=== PATIENT | female | born 1990 | race Caucasian/White ===

== ENCOUNTER 2016-04-27 13:00 | Inpatient (IN) | payer MEDICAID ==
[~2016-04-27] VITALS: Ht 157.5 cm; Wt 87.3 kg
--- NOTE | ~2016-04-27 | DS ---
PATIENT'S NAME: JUNIOR HOLLIS [facility] AGE: 26 Y [address] ROOM: [address] [address] LOCATION: GPCU ADMIT DATE: 04/27/2016 Discharge Summary DISCHARGE DATE: 04/30/2016 FAMILY PHYSICIAN: Beth Leavitt APRN ATTENDING PHYSICIAN: Drake Bailey PRIMARY DIAGNOSES: 1. Diabetic ketoacidosis. 2. Insulin-dependent diabetes mellitus type 1. 3. Enteritis. 4. Hypothyroidism. 5. Anxiety, generalized. 6. Bipolar disorder. 7. Posttraumatic stress disorder. OPERATIONS OR PROCEDURES: None. HISTORY OF PRESENTING ILLNESS AND REASON FOR ADMISSION: Please refer to the H and P dictated on 04/27/2016. HOSPITAL COURSE: The patient was admitted to the hospital as noted above with a presumptive diagnosis of diabetic ketoacidosis. She was taken [facility]. She was managed aggressively with IV insulin and IV fluid hydration therapy. Clinical condition improved relatively quickly. Blood sugars did resolve. She was eventually transitioned to D5 half-normal saline with 20 of potassium and this was tapered off. By day #2, she was tolerating a regular diet and assisting in the management of her blood sugars. She was transitioned to a subcu insulin regimen. Considering difficulties with her insulin pump and management, we looked at utilizing a simplified insulin regimen at home. For some reason, she had been treated with Invokana and metformin; however, it seems to be understood that she is a type 1 diabetic. I did not find any clearly documented evidence of this, however. Regardless, the metformin and Invokana were stopped, and she was managed exclusively with insulin. She seemed to respond well to the subcu regimen. The certified pedorthotist was consulted and after reviewing her outpatient problems, it was decided that she would fair the best back on her insulin pump. She did indeed have insurance coverage, but she also received some additional insulin pump supplies from the clinical document improvement educator. By the 4th day of her hospital stay, she was essentially back at baseline and managing her own blood sugars independently. Diabetes Education did review her pump settings and made some minor adjustments. At that point, it was felt she would be stable enough for discharge to home with plans for close clinical PATIENT'S NAME: JUNIOR HOLLIS [facility] AGE: 26 Y [address] ROOM: [id number] [place], [place] [address] LOCATION: GPCU ADMIT DATE: 04/27/2016 Discharge Summary DISCHARGE DATE: 04/30/2016 FAMILY PHYSICIAN: Beth Leavitt APRN ATTENDING PHYSICIAN: Drake Bailey followup with primary care provider as well as outpatient followup with the clinical document improvement educator and eventual followup with Endocrinology. This has already been scheduled. DISCHARGE INSTRUCTIONS: DIET: ADA, 1800-calorie per day as tolerated. ACTIVITY: As tolerated. MEDICATIONS: 1. Insulin pump; Humalog 1.55 units/hour with 1 unit per 3 carbs, mealtime correction per her insulin pump. 2. Alprazolam 2 mg p.o. at bedtime, 1 mg p.o. t.i.d. p.r.n. 3. Abilify 30 mg p.o. at bedtime. 4. Benadryl 50 mg p.o. at bedtime. 5. Lexapro 20 mg p.o. at bedtime. 6. Trintellix 20 mg p.o. at bedtime. 7. Levothyroxine 88 mcg p.o. daily. 8. Viibryd 20 mg p.o. at bedtime. 9. Multiple vitamin daily. FOLLOWUP: She will follow up with her primary care provider Beth Leavitt in [place] in 3 to 5 days. She will follow up with Dr. Higginbotham, band sawing machine operator on May 14 as previously scheduled. She is also going to follow up with the clinical document improvement educator here in [place] on an as-needed basis. CONDITION ON DISCHARGE: Good. Total time spent on discharge process 45 minutes. MD NURA SMITH/jeff /[id number] d: 05/01/16 0439 t: 05/04/16 1642, DISCHARGE SUMMARY
--- NOTE | ~2016-04-27 | HP ---
PATIENT'S NAME: JUNIOR HOLLIS [facility] AGE: 26 Y [address] ROOM: [id number] [place], [place] [address] LOCATION: GPCU ADMIT DATE: 04/27/2016 History & Physical DISCHARGE DATE: FAMILY PHYSICIAN: Beth Leavitt APRN ATTENDING PHYSICIAN: JOLEEN ARORA DATE OF SERVICE: CHIEF COMPLAINT: Nausea and nonbloody vomiting and abdominal pain. HISTORY OF PRESENT ILLNESS: This is a 26-year-old, female with a long history of type 1 diabetes with DKA admission in the past, who has been using an insulin pump since she was 20 years old when she was first diagnosed. However, her insurance ran out and does not cover her insulin pump insulin anymore. Therefore, her insulin pump was discontinued on this Friday, just five days ago. She called her primary care physician and subcutaneous insulin was prescribed and according to the patient, she has been compliant with the medication. However, upon asking the patient how many units and which insulin type of the subcutaneous insulin, the patient could not really tell me. Just last Friday, the patient was over there in the hospital for one day in [place] for DKA and the patient was discharged on the next day according to the patient's . Everything happened last night when she started feeling this nausea and nonbloody vomiting, headache, feeling dehydrated, feeling thirsty, diffuse abdominal pain, and a sensation of chills and the patient went to the ER at [place] for evaluation. Over there, the patient was found to be in DKA again, and the patient was given IV fluids, and started on IV insulin drip per the insulin protocol for DKA and the patient had EKG performed which showed sinus tachycardia, heart rate 129 without any ischemic changes. Also had a chest x-ray performed which was unremarkable. Also had a CT of abdomen and pelvis with contrast which showed suggestion of a mild mural thickening of proximal jejunal loops which may reflect enteritis. Otherwise no acute finding. The patient's pH ABG was found to be 7.02 and bicarb was 9, anion gap was 31.5, potassium was 4.9, and blood pressure was 130/70. The patient was later transferred here for higher level of care for DKA. REVIEW OF SYSTEMS: As mentioned in the history of present illness. All other systems reviewed and negative except those mentioned in history of present illness. PAST MEDICAL HISTORY: 1. Type 1 diabetes since age 20 on insulin pump at home until this Friday when her insurance did not cover, so she went into subcutaneous insulin; however, compliance is in question. 2. Hypothyroidism. 3. PTSD. PATIENT'S NAME: JUNIOR HOLLIS [facility] AGE: 26 Y [address] ROOM: [place] [address] LOCATION: GPCU ADMIT DATE: 04/27/2016 History & Physical DISCHARGE DATE: FAMILY PHYSICIAN: Beth Leavitt APRN ATTENDING PHYSICIAN: JOLEEN AROAR 4. Anxiety disorder. ALLERGIES: PENICILLIN, ACCORDING TO THE PATIENT IS ANAPHYLAXIS. HOME MEDICATIONS: Currently is being reconciled. SOCIAL HISTORY: The patient denies any alcohol or cigarette or illegal drug use. PAST SURGICAL HISTORY: Status post 2 prior C-sections and status post hysterectomy and status post cholecystectomy. FAMILY HISTORY: Both parents had diabetes but both parents had type 2 diabetes. Father in a motor vehicle accident. Mother also has a cancer of the skin. PHYSICAL EXAMINATION: VITAL SIGNS: At the time of my dictation, heart rate 110, blood pressure 120/80, temperature 98, saturation 99% on room air, respiration 16. GENERAL APPEARANCE: Alert and oriented x3, in no acute distress. HEENT: Dry oral mucosa. Nasal turbinates are normal bilaterally. No oral thrush. Pupils are equally round and reactive to light. Extraocular muscles intact. Anicteric sclerae. CARDIOVASCULAR: Tachycardia. Normal S1, S2. Regular rhythm. No murmur, rubs or gallops. RESPIRATORY: Clear. Chest wall nontender to palpation. ABDOMEN: Obese, mildly diffusely tender on palpation in the anterior abdomen in every quadrant. No rebound tenderness. No abdominal rigidity. No findings to suggest peritonitis. Soft. Nondistended. No ascites. Bowel sounds present. No hepatosplenomegaly. EXTREMITIES: No edema in upper or lower extremities. NEUROLOGICAL: Nonfocal. SKIN. No rash, no ulcer, and no cyanosis. MUSCULOSKELETAL: No joint pain. No muscle pain. LABORATORY DATA: Currently, the labs are pending. IMAGING STUDIES: As mentioned in the history of present illness. ASSESSMENT AND PLAN: PATIENT'S NAME: JUNIOR HOLLIS [facility] AGE: 26 Y [address] ROOM: [id number] [place], [place] [address] [facility] AD[facility] DATE: 04/27/2016 History & Physical DISCHARGE DATE: FAMILY PHYSICIAN: Beth Leavitt APRN ATTENDING PHYSICIAN: JOLEEN ARORA 1. Diabetic ketoacidosis. Most likely cause is because of medication noncompliance. We will continue the patient on insulin drip per DKA protocol. IV fluids depending on the electrolytes. We will check a fingerstick every hour and a basic metabolic panel every 2 hours and correct the electrolytes and change IV fluids as necessary per DKA protocol. IV Zofran p.r.n. for nausea or vomiting. N.p.o. for now due to nausea. commercial credit lead consult. Once the patient's DKA has resolved, I will overlap the subcutaneous insulin with 1 hour with IV insulin drip before shutting off the IV insulin drip. Eventually, the patient has to go back on the insulin pump. I will consult our trimming caser and also our relationship banker to see how to help the patient with getting more insulin for her insulin pump due to medical insurance problem. Given that she also has a leukocytosis could be secondary to the stress from DKA; however, CT of abdomen and pelvis with IV contrast performed at outside facility also showed questionable enteritis in the jejunum. Therefore, for this reason, I am going to start her empirically on IV ciprofloxacin and IV Flagyl given that the patient does have allergy to penicillin in the past. Blood culture will be obtained two sets. I will get urinalysis and urine culture. We will check the labs again right now including CBC with differential, basement basic metabolic panel and lactic acid and procalcitonin and magnesium. Further plan depends on clinical course. 2. Regarding her hypothyroidism, continue home medication levothyroxine and check a TSH to see if the dose has to be adjusted. 3. Anxiety disorder and posttraumatic stress disorder. Continue home medication. Currently not in panic attack. Not in acute distress. 4. Deep venous thrombosis prophylaxis. The patient will be on Lovenox subcu. Time spent on the day of admission 35 minutes including chart review, examining and interviewing the patient, addressing all the questions the patient had, and going over the plan of care with the nurses and the patient and the patient's at the bedside. MD SCOTTIE WHELAN/jeff /[id number] D: [id number] T: 114 HISTORY & PHYSICAL
[~2016-04-27 13:00] MED LIST: ACCU-CHEK COMB1 EACH; HUMALOG100 UNIT/2 SUB-Q; LASIX40 MG PO; LEVOTHROID (SY88 MCG PO; LEXAPRO20 MG PO; METFORMIN HCL500 MG PO; TRINTELLIX 20 MG PO; VICTOZA 2-0.6 MG/0.1 SUB-Q; VIIBRYD40 MG PO; XANAX1 MG PO
[2016-04-27] MEDS ORDERED: XANAX1 MG PO (15:52)
[2016-04-27] MEDS ORDERED: HUMALOG100 UNIT/1 SUB-Q (15:56)
[2016-04-27] MEDS ORDERED: LEVEMIR100 UNIT/1 SUB-Q (15:59)
[2016-04-27] MEDS ORDERED: INVOKANA300 MG PO (16:00)
[2016-04-27] MEDS ORDERED: BENADRYL50 MG PO (16:00)
[2016-04-27] MEDS ORDERED: ABILIFY30 MG PO (16:00)
[2016-04-27] MEDS ORDERED: THERA-VITE W/ B1 TAB PO (16:01)
[2016-04-27 16:28] LABS: PCO2 27 mmHg (35-45); PO2 54 mmHg (80-90)
[2016-04-27 16:29] LABS: BASOPHIL # 0.1 K/uL (0.0-0.2); BASOPHIL % 0.3 %; HEMATOCRIT 39.5 % (33.0-46.0); HEMOGLOBIN 13.9 g/dL (11.0-15.0); IMMATURE GRANULOCYTE # 0.3 K/uL (0.0-0.3); IMMATURE GRANULOCYTE % 1.1 %; LYMPHOCYTE # 2.1 K/uL (0.8-4.0); LYMPHOCYTE % 9.2 %; MCH 32.8 pg (27.0-34.0); MCHC 35.2 gm/dL (32.0-36.5); MCV 93.2 fl (83.0-98.0); MONOCYTE # 1.4 K/uL (0.0-1.0); MPV 8.6 fl (9.4-12.4); NEUTROPHIL # (ANC) 19.1 K/uL (1.8-7.8); NEUTROPHIL % 83.4 %; NRBC % 0 /100WBC (0-0.00); PLATELET COUNT 319 K/uL (150-450); RBC 4.24 M/uL (3.50-5.00); RDW-CV 12.1 % (11.9-14.6)
[2016-04-27 16:31] LABS: WBC 22.9 K/uL (4.0-11.0)
[2016-04-27 16:52] LABS: ALBUMIN 3.2 gm/dL (3.5-5.0); ALK PHOS 106 IU/L (33-138); ALT 14 IU/L (12-78); AST 8 IU/L (10-40); BLOOD UREA NITROGEN 15 mg/dL (6-24); CHLORIDE 111 mMol/L (96-110); ESTIMATED GFR (MDRD EQUATION) > 60; MAGNESIUM 2.1 mg/dL (1.3-2.6); POTASSIUM 4.8 mMol/L (3.7-5.1); SODIUM 138 mMol/L (135-145); TOTAL BILIRUBIN 0.6 mg/dL (0.0-1.5); TOTAL PROTEIN 6.4 g/dL (6.0-8.4)
[2016-04-27 16:53] LABS: ANION GAP 23.8 (10.0-19.0); CALCIUM 7.1 mg/dL (8.5-10.5); CO2 8 mMol/L (22-32)
[2016-04-27 18:47] LABS: ANION GAP 19.4 (10.0-19.0); BLOOD UREA NITROGEN 11 mg/dL (6-24); CALCIUM 7.1 mg/dL (8.5-10.5); CHLORIDE 114 mMol/L (96-110); CO2 9 mMol/L (22-32); CREATININE 0.9 mg/dL (0.5-1.1); ESTIMATED GFR (MDRD EQUATION) > 60; POTASSIUM 4.4 mMol/L (3.7-5.1); SODIUM 138 mMol/L (135-145)
--- NOTE | 2016-04-27 19:30 | NUR ---
Significant Event: PT ARRIVED VIA EMS TO ROOM 0206. VSS, TACHY HR 130-140.PT A/O X3 VERY FATIGUED. VALERIO PRESENT ON ARRIVIAL. IVS - D5 1/2 NS AND INSULIN GTT RUNNING CONTINUE PER DR. ARORA, UNTIL PT SEEN BY DR FOR NEW ORDERS. - FANTASMA AT BEDSIDE W/ SON RUBIA. CONTACT # ON BOARD. ORIENTATE TO ROOM, RN, FAY CRUZ SYS. IV ANTIBIOTICS DELAYED DUE TO NOT HAVING 2ND IV. VBG CALLED TO - NO NEW ORDERS AT THAT TIME. CALL BMP RESULTS TO DR. FAY CRUZ AND PERSONAL ITEMS IN REACH, QUESTIONS/CONCERNS ADDRESSED THIS TOD. Follow up: CALL BMP RESULTS TO TITRATE INSULIN GTT/Q1H BS. CONTINUE TO MONITER, CONTINUE PER PLAN OF CARE.
[2016-04-27 20:49] LABS: BLOOD UREA NITROGEN 10 mg/dL (6-24); CHLORIDE 115 mMol/L (96-110); CREATININE 0.9 mg/dL (0.5-1.1); ESTIMATED GFR (MDRD EQUATION) > 60; SODIUM 139 mMol/L (135-145)
[2016-04-27 20:50] LABS: ANION GAP 20.3 (10.0-19.0); CALCIUM 7.1 mg/dL (8.5-10.5); CO2 8 mMol/L (22-32); POTASSIUM 4.3 mMol/L (3.7-5.1)
[2016-04-27 21:39] LABS: BILIRUBIN URINE NEGATIVE (NEGATIVE); BLOOD URINE 250 /UL (NEGATIVE); COLOR URINE COLORLESS (YELLOW); GLUCOSE URINE 1000 mg/dL (NEGATIVE); KETONE URINE 50 mg/dL (NEGATIVE); LEUKOCYTES URINE NEGATIVE /UL (NEGATIVE); NITRITE URINE NEGATIVE (NEGATIVE); PROTEIN URINE NEGATIVE (NEGATIVE); SPEC GRAVITY URINE 1.005 (1.003-1.035); TURBIDITY URINE CLEAR (CLEAR); UROBILINOGEN URINE NORMAL (NORMAL)
[2016-04-27 21:54] LABS: BACTERIA URINE NEGATIVE (NEGATIVE); EPITHELIAL URINE 0-2 #/HPF (NEGATIVE); WBC URINE RARE #/HPF (NEGATIVE)
[2016-04-27 22:05] LABS: BARBITURATE NEGATIVE (NEGATIVE); COCAINE NEGATIVE (NEGATIVE); OPIATES NEGATIVE (NEGATIVE)
[2016-04-27 22:07] LABS: AMPHETAMINE NEGATIVE (NEGATIVE)
[2016-04-27 22:58] LABS: BLOOD UREA NITROGEN 9 mg/dL (6-24); CHLORIDE 114 mMol/L (96-110); CREATININE 0.8 mg/dL (0.5-1.1); ESTIMATED GFR (MDRD EQUATION) > 60; POTASSIUM 3.7 mMol/L (3.7-5.1); SODIUM 140 mMol/L (135-145)
[2016-04-27 23:00] LABS: ANION GAP 15.7 (10.0-19.0); CALCIUM 7.3 mg/dL (8.5-10.5); CO2 14 mMol/L (22-32)
--- NOTE | 2016-04-28 04:39 | NUR ---
Patient a/ox3. VSS. Sinus Tach 1-teens. Lungs clear. Hypoactive bowel sounds. Insulin gtt off. Accu checks q6hrs. BMP q6hrs. Levamir 25units given. Muñoz good urine output. No complaints. IV antibotics.
[2016-04-28 04:59] LABS: BLOOD UREA NITROGEN 7 mg/dL (6-24); CHLORIDE 113 mMol/L (96-110); CREATININE 0.7 mg/dL (0.5-1.1); ESTIMATED GFR (MDRD EQUATION) > 60; POTASSIUM 4.3 mMol/L (3.7-5.1); SODIUM 141 mMol/L (135-145)
[2016-04-28 05:08] LABS: ANION GAP 17.3 (10.0-19.0); CALCIUM 7.3 mg/dL (8.5-10.5); CO2 15 mMol/L (22-32)
[2016-04-28 12:41] LABS: ANION GAP 19.3 (10.0-19.0); BLOOD UREA NITROGEN 6 mg/dL (6-24); CALCIUM 7.8 mg/dL (8.5-10.5); CHLORIDE 114 mMol/L (96-110); CREATININE 0.6 mg/dL (0.5-1.1); ESTIMATED GFR (MDRD EQUATION) > 60; POTASSIUM 4.3 mMol/L (3.7-5.1); SODIUM 143 mMol/L (135-145)
[2016-04-28 12:42] LABS: CO2 14 mMol/L (22-32)
--- NOTE | 2016-04-28 15:54 | NUR ---
Significant Event: pt ice chips until this afternoon, then hilary.clear liquids. Muñoz dcd at 1445 pt voided. Levimir given at 1530. Renal mg 1999. Pt up to bathroom and pope. Pt family here this afternoon and pt needs shower. Follow up:
[2016-04-28 20:51] LABS: ALBUMIN 2.8 gm/dL (3.5-5.0); ANION GAP 18.9 (10.0-19.0); BLOOD UREA NITROGEN 10 mg/dL (6-24); CALCIUM 7.5 mg/dL (8.5-10.5); CHLORIDE 110 mMol/L (96-110); CO2 15 mMol/L (22-32); CREATININE 0.7 mg/dL (0.5-1.1); ESTIMATED GFR (MDRD EQUATION) > 60; MAGNESIUM 2.4 mg/dL (1.3-2.6); PHOSPHORUS 1.2 mg/dL (2.5-4.9); POTASSIUM 3.9 mMol/L (3.7-5.1); SODIUM 140 mMol/L (135-145)
[2016-04-29 00:42] LABS: ANION GAP 15.3 (10.0-19.0); BLOOD UREA NITROGEN 8 mg/dL (6-24); CALCIUM 7.6 mg/dL (8.5-10.5); CHLORIDE 108 mMol/L (96-110); CO2 20 mMol/L (22-32); CREATININE 0.6 mg/dL (0.5-1.1); ESTIMATED GFR (MDRD EQUATION) > 60; POTASSIUM 3.3 mMol/L (3.7-5.1); SODIUM 140 mMol/L (135-145)
--- NOTE | 2016-04-29 04:57 | NUR ---
Patient a/ox3. VSS on RA. Up standby assist. Lung clear. Bowel sound present, BM this shift. No complaints. IV to Lt ac and forearm. 1/2Ns at 125ml. IV antibotics. Continue plan of care.
[2016-04-29 06:34] LABS: ALBUMIN 2.7 gm/dL (3.5-5.0); ANION GAP 14.5 (10.0-19.0); BLOOD UREA NITROGEN 6 mg/dL (6-24); CALCIUM 7.7 mg/dL (8.5-10.5); CHLORIDE 111 mMol/L (96-110); CO2 21 mMol/L (22-32); CREATININE 0.5 mg/dL (0.5-1.1); ESTIMATED GFR (MDRD EQUATION) > 60; MAGNESIUM 2.4 mg/dL (1.3-2.6); PHOSPHORUS 2.2 mg/dL (2.5-4.9); POTASSIUM 3.5 mMol/L (3.7-5.1); SODIUM 143 mMol/L (135-145)
--- NOTE | 2016-04-29 11:40 | NUR ---
1140 Introduced self/role to patient. She lives in [place]. Legally from her but they help eachother out. Has a 8 year old son and lost a 1 day old daughter about 3 years ago. We talked a little about that loss. She stated Monik with Diabetic Ed was assisting her to find insulin supplies for the rest of the month. Then starting May 08 insurance will start to cover her supplies. She couldn't think of any additional needs once home. Wrote my name on her marker board, will continue to follow.
[2016-04-29 12:39] LABS: ANION GAP 16.3 (10.0-19.0); BLOOD UREA NITROGEN 9 mg/dL (6-24); CALCIUM 7.7 mg/dL (8.5-10.5); CHLORIDE 106 mMol/L (96-110); CO2 22 mMol/L (22-32); CREATININE 0.6 mg/dL (0.5-1.1); ESTIMATED GFR (MDRD EQUATION) > 60; POTASSIUM 3.3 mMol/L (3.7-5.1); SODIUM 141 mMol/L (135-145)
--- NOTE | 2016-04-29 14:36 | NUR ---
Diabetes Consult: Patient was admitted with DKA. She reports having run out of insulin pump supplies 2 days ago. The patient did have a vial of Humalog and Levemir, and gave herself insulin injections for her blood sugars over the last 2 days. Unfortunately, she did not remember how to dose her Levemir, having been on a pump for so long that she was using her Humalog correction scale to dose her Levemir. The patient reports that she has been having problems with Medicaid approving the shipment of her supplies after [facility] took over. The patient states she has an appointment set up with Dr. Higginbotham, Equipment Maintenance Superintendent in [place] on May 14. At this appointment, she will establish care and have Dr. Higginbotham prescribe her pump supplies. The patient is interested in seeing the CDE in the [facility] during for education and assistance with her pump when she is not seeing Dr. Higginbotham. The patient was given pumps supplies to last for [address] Higginbotham and request and outpatient CDE referral. The patient was provided with a written emergency plan if her pump fails or she has to come off her pump. It is complete with pictures and dosages. The patient voiced understanding of the information. The patient reports a family member can bring her insulin pump to the hospital after 1800 tonight. The patient did receive 25 units of Levemir at [address] Noriega to form a plan to restart her insulin pump. The patient is running blood sugars in the mid 200's at this time. Orders were received to restart her insulin pump at 2300 tonight. Patient is knowledgeable on how to start her pump. Will have CDE reevaluate blood sugars first thing in the morning and assist with pump. Sick day guidelines were reviewed. The patient was provided with the diabetes survival skills assessment to complete.
--- NOTE | 2016-04-29 15:58 | NUR ---
Significant Event: A/O X 3. FEELING MUCH BETTER. ACCUCHECKS 109-211. Follow up: PATIENT TO AUTOMOTIVE QUALITY MANAGER HER OWN INSULIN PUMP AND 2300, AND USE HER NORMAL SETTINGS. THEN EMAR MEDS WILL BE DC'D.
[2016-04-29 17:53] LABS: ANION GAP 15.6 (10.0-19.0); BLOOD UREA NITROGEN 10 mg/dL (6-24); CALCIUM 8.1 mg/dL (8.5-10.5); CHLORIDE 106 mMol/L (96-110); CO2 22 mMol/L (22-32); CREATININE 0.6 mg/dL (0.5-1.1); ESTIMATED GFR (MDRD EQUATION) > 60; SODIUM 140 mMol/L (135-145)
[2016-04-29 17:58] LABS: POTASSIUM 3.6 mMol/L (3.7-5.1)
[2016-04-30 01:10] LABS: ANION GAP 14.7 (10.0-19.0); BLOOD UREA NITROGEN 13 mg/dL (6-24); CALCIUM 8.1 mg/dL (8.5-10.5); CHLORIDE 106 mMol/L (96-110); CO2 20 mMol/L (22-32); CREATININE 0.6 mg/dL (0.5-1.1); ESTIMATED GFR (MDRD EQUATION) > 60; SODIUM 137 mMol/L (135-145)
[2016-04-30 01:15] LABS: POTASSIUM 3.7 mMol/L (3.7-5.1)
--- NOTE | 2016-04-30 04:41 | NUR ---
Significant Event: PATIENT A/0 X 3, UP AD RAÚL IN ROOM. ALL VSS ON RA, AFEBRILE. 1/2 NS AT TKO. TRENDING BMP Q6 HOURS. PATIENT BEGAN USING HER OWN INSULIN PUMP LAST NIGHT AT 2300. DIABETIC ED IS TO COME AT 0900 TO ADRESS PUMP AND REVIEW SETTINGS. NO COMPLAINTS OF PAIN, NO PAIN MEDS GIVEN. SHE HAS RESTED WELL ALL EVENING. Follow up: MOST LIKELY DISCHARGE TODAY.
[2016-04-30 06:01] LABS: BASOPHIL # 0.1 K/uL (0.0-0.2); BASOPHIL % 0.9 %; EOSINOPHIL # 0.4 K/uL (0.0-0.5); HEMATOCRIT 35.9 % (33.0-46.0); HEMOGLOBIN 12.8 g/dL (11.0-15.0); IMMATURE GRANULOCYTE % 0.4 %; LYMPHOCYTE # 2.5 K/uL (0.8-4.0); LYMPHOCYTE % 44.6 %; MCH 32.5 pg (27.0-34.0); MCHC 35.7 gm/dL (32.0-36.5); MCV 91.1 fl (83.0-98.0); MONOCYTE # 0.4 K/uL (0.0-1.0); MONOCYTE % 7.8 %; MPV 8.9 fl (9.4-12.4); NEUTROPHIL # (ANC) 2.2 K/uL (1.8-7.8); NEUTROPHIL % 39.3 %; NRBC % 0 /100WBC (0-0.00); RBC 3.94 M/uL (3.50-5.00); RDW-CV 11.9 % (11.9-14.6); WBC 5.5 K/uL (4.0-11.0)
[2016-04-30 06:02] LABS: PLATELET COUNT 205 K/uL (150-450)
[2016-04-30 06:23] LABS: ANION GAP 15.5 (10.0-19.0); BLOOD UREA NITROGEN 9 mg/dL (6-24); CHLORIDE 111 mMol/L (96-110); CO2 20 mMol/L (22-32); CREATININE 0.4 mg/dL (0.5-1.1); ESTIMATED GFR (MDRD EQUATION) > 60; MAGNESIUM 2.3 mg/dL (1.3-2.6); PHOSPHORUS 2.8 mg/dL (2.5-4.9); POTASSIUM 3.5 mMol/L (3.7-5.1); SODIUM 143 mMol/L (135-145)
--- NOTE | 2016-04-30 09:52 | NUR ---
Diabetes Center note: 0845 Patient had restarted her insulin pump last evening at 2315 and site is located on right upper abdomin, we discussed site rotation and patient states that she has been using her legs sometimes as well. Accu Chek Spirit combo meter and pump being utilized, also recommended if patient is having trouble with her pump that she can call the 1-800 number of the back of the pump. Reviewed pump safety guidelines, Dr. Noriega in room at the time and patient is anxious to go home, DKA prevention stressed. CDE on 04/29/16 provided pump supplies for patient until she can get supplies from her insurance company. Pump settings where reviewed and written on chart. Patient has an appt with ralph on May 14 and also agrees to follow up with CDE in [facility] in [facility]. Current A1C was 8.3 % Reveiwed need to notify primary care physician if blood sugars start to increase, and do not delay! Blood sugar this a.m. was as low as 50, OJ drank, blood sugar 15 mins later was up to 80, patient then ate breakfast and blood sugar at 9:20 a.m. was 163 mg/dl. Patient states she is feeling much better! Patient does ask appropriate questions and is agrees to contact Diabetes Center if questions or concerns. Making arrangements for dismissal.
--- NOTE | 2016-04-30 12:17 | NUR ---
1145: DISM. INSTRUCTIONS: REVIEW OF HOME MEDS NO NEW MEDS. TO CONTINUE ON SAME INSULIN PUMP SETTINGS PRIOR TO HOSPITAL STAY. FOLLOW UP APPT. DIET/ ACTIVITY. PATIENT VOICED UNDERSTANDING.
== END 2016-04-30 11:45 | disposition disaster alternative care site (69) | DRG 639 ==
LOC: GPCU 14:46
PROVIDERS: Family Medicine; Internal Medicine; ADMIT Internal Medicine
DX: E13.10 Other specified diabetes mellitus with ketoacidosis without coma (principal); E03.9 Hypothyroidism, unspecified; K52.9 Noninfective gastroenteritis and colitis, unspecified; E86.0 Dehydration; F43.10 Post-traumatic stress disorder, unspecified; F41.9 Anxiety disorder, unspecified; Z91.14 Patient's other noncompliance with medication regimen; F31.9 Bipolar disorder, unspecified; Z79.4 Long term (current) use of insulin; Z96.41 Presence of insulin pump (external) (internal)
CPT/HCPCS: J0744; J1650; J3480; J7040; J7050

== ENCOUNTER 2016-10-09 05:11 | Inpatient (IN) | payer MEDICAID ==
[~2016-10-09] VITALS: Ht 157.5 cm; Wt 83.8 kg
--- NOTE | ~2016-10-09 | DS ---
PATIENT'S NAME: JUNIOR HOLLIS [facility] AGE: 26 Y [address] ROOM: [address] [place], [place] [address] LOCATION: GPCU ADMIT DATE: 10/09/2016 Discharge Summary DISCHARGE DATE: 10/11/2016 FAMILY PHYSICIAN: Beth Leavitt APRN ATTENDING PHYSICIAN: Drake Bailey FINAL DIAGNOSES: 1. Diabetic ketoacidosis. 2. Insulin-dependent diabetes mellitus. 3. Primary hypothyroidism. HISTORY OF PRESENT ILLNESS: Please see the history and physical dictated by Dr. Bailey for details of admission. In short, the patient was transferred from [place] after presenting there for a second time with symptoms of nausea, vomiting, elevated blood sugars, and is found to have a pH of 6.95. LABORATORY DATA: On arrival, her ABG pH 7.15, pCO2 14, pO2 111, and lactate 0.6. Sodium on admission was 138, got as high as 146 on the 3rd, most prior to discharge 142; potassium on admission was 3.8, got as low as 3.1, at discharge, it was 3.1; chloride on admission was 112, most prior to discharge 105; CO2 on admission was 9, most prior to discharge 28; BUN on admission was 7, discharge 6; creatinine on admission was 0.8, discharge 0.4. Liver enzyme total bilirubin is 0.5, alk phos 94, AST 13, ALT 16. White blood cell count on admission is 15, hemoglobin A1c is 13.1, hematocrit 36.9, and platelet count 255, most prior to discharge, white blood cell count 4.3, hemoglobin 12.2, hematocrit 33.8, and platelet count 177. Procalcitonin 0.24. Urinalysis on admission did not show any evidence of infection. X-RAY DATA: None. HOSPITAL COURSE: The patient was admitted into the Intensive Care Unit. She had received IV bicarbonate en route. On arrival, a repeat ABG was obtained, she was started on IV insulin drip, she was given aggressive IV hydration. She was started on Lovenox for DVT prophylaxis. Her electrolytes were monitored closely and the potassium, phosphorus, and magnesium were replaced. After the ABG returned, she was given a liter of normal saline with 2 more amps of sodium bicarb. We did start letting her have some clear liquids and advanced it as tolerated. We were able to transfer out of the Intensive Care Unit. We then started her on Levemir and carb count NovoLog. We monitored her for another 24 hours and made adjustments in her doses. It was felt that she was stable for discharge on the . She has a new insulin pump waiting for her and is due to get it administered on Friday, October 14. DISCHARGE INSTRUCTIONS: She is discharged to home. She is to keep her followup appointment for her pump placement on October 14. PATIENT'S NAME: JUNIOR HOLLIS [facility] AGE: 26 Y [address] ROOM: [id number] [id number] LOCATION: GPCU ADMIT DATE: 10/09/2016 Discharge Summary DISCHARGE DATE: 10/11/2016 FAMILY PHYSICIAN: Beth Leavitt APRN ATTENDING PHYSICIAN: Drake Bailey MEDICATIONS: Her medications are as follows: 1. Lexapro 20 mg at bedtime. 2. Synthroid 88 mcg daily. 3. Alprazolam 1 mg 3 times daily. 4. Benadryl 50 mg at bedtime. 5. Multivitamin daily. 6. Furosemide 40 mg daily. 7. Acetaminophen 650 mg every 4 hours as needed. 8. Levemir 26 units at night. 9. NovoLog 2 units per carb consumed with meals. PROGNOSIS: Overall, prognosis at discharge was good. The patient did voice understanding. MIRNA MOORE MD LAW/modl /[id number] d: 10/12/16 0021 t: 10/16/16 1115, DISCHARGE SUMMARY
--- NOTE | ~2016-10-09 | HP ---
PATIENT'S NAME: JUNIOR HOLLIS [facility] AGE: 26 Y [address] ROOM: [id number] [place], [place] [address] LOCATION: [facility] ADMIT DATE: 10/09/2016 History & Physical DISCHARGE DATE: FAMILY PHYSICIAN: PHYSICIAN, UNKNOWN ATTENDING PHYSICIAN: JOLEEN ARORA DATE OF SERVICE: CHIEF COMPLAINT: DKA with nausea, vomiting, and bilateral flank pain. HISTORY OF PRESENT ILLNESS: This is a 26-year-old female who says that she has type 1 diabetes and on insulin pump; however, her insulin pump broke down about 2 weeks ago and she did not get a new insulin pump. Instead, for the last 2 weeks, she has been using subcu Levemir and subcutaneous NovoLog insulin with NovoLog depending on her sliding scale and also Levemir she was using 45 units every night. It is not quite sure to me if she is really compliant or not, but she states that she is compliant. Roughly, about 2 days ago, she has been having this nausea and vomiting and could not keep anything down when she took anything orally. At the same time, she also has her typical acid reflux pain in her epigastric area, but she denies any chest pain and never had any heart problem before. She also complained of some bilateral flank pain, but she denies any urinary frequency, urgency, or dysuria. Because of these problems, the patient went to outside facility in [place] for evaluation yesterday morning. Yesterday morning, she was found to be in DKA and she was treated with IV fluids and IV Zofran and insulin drip and she improved and she was discharged home. However, when she went home, her symptoms came back. Nausea, vomiting, bilateral flank pain, epigastric pain, and the patient came back to the ER. The patient went back to the [place] again and the patient was found to be in DKA again, this time more severe with her bicarb was found to be at 2.3. Bicarb was 2.3. ABG showed pH of 6.9, pCO2 of 12.1, and tachypnea with respiration rate of 40, and heart rate of 140, and her fingerstick glucose was found to be in the high 300s at that time. The patient was started on the insulin drip again with IV fluids and they called me for a transfer. I told them to start sodium bicarb drip run over 2 hours, 100 mEq mixed in 400 mL of water with 20 mEq of IV potassium chloride per DKA protocol per [employer]. The patient was sent over here by transfer and now is in the ICU for DKA management. On examination, the patient is drowsy and sleepy. She states that she has not slept much last night and she is very sleepy. Otherwise, when you talk to her, she could open her eyes and she would answer questions appropriately and is oriented x3. Her only complaint is nausea and also bilateral flank pain, but otherwise she just feels very tired and wants to sleep. PATIENT'S NAME: JUNIOR HOLLIS [facility] AGE: 26 Y [address] ROOM: [address] [place] [id number] LOCATION: [facility] ADMIT DATE: 10/09/2016 History & Physical DISCHARGE DATE: FAMILY PHYSICIAN: PHYSICIAN, UNKNOWN ATTENDING PHYSICIAN: JOLEEN ARORA REVIEW OF SYSTEMS: As mentioned in the history of present illness. All other systems were reviewed and were negative except those mentioned in history of present illness. PAST MEDICAL HISTORY: 1. Type 1 diabetes. 2. Depression. 3. Hypothyroidism. ALLERGIES: PENICILLIN CAUSES RASH. HOME MEDICATIONS: Currently has been reconciled. SOCIAL HISTORY: She denies any alcohol or illegal drug or cigarette use. PAST SURGICAL HISTORY: 1. Cholecystectomy. 2. Hysterectomy. 3. twice in the past. 4. Adenoidectomy. FAMILY HISTORY: Father had type 2 diabetes. Mother also had a type 2 diabetes. PHYSICAL EXAMINATION: VITAL SIGNS: At the time of my evaluation, temperature 98.2, heart rate 119, respirations 18, blood pressure 127/72, saturation 100% on room air. GENERAL APPEARANCE: Alert to voice, but she is sleepy due to sleep deprivation. The patient is oriented to people, time, and place when asked questions. The patient is tachypneic and the patient looks dry. HEENT: Pupils are equally round and reactive to light. Extraocular muscles are intact. Anicteric sclerae. Nasal turbinates are normal bilaterally. Dry oral mucosa. NECK: No JVD. CARDIOVASCULAR: Regular rate, tachycardic. Normal S1, S2. No murmur, no rubs, no gallops. RESPIRATORY: Clear to auscultation. No rales, no rhonchi, no wheezing, no crackles. ABDOMEN: Obese, soft, nontender, nondistended, bowel sounds are present, and no mass. Currently, there is no tenderness to palpation in the costophrenic PATIENT'S NAME: JUNIOR HOLLIS [facility] AGE: 26 Y [address] ROOM: [place] [address] LOCATION: [facility] ADMIT DATE: 10/09/2016 History & Physical DISCHARGE DATE: FAMILY PHYSICIAN: PHYSICIAN, UNKNOWN ATTENDING PHYSICIAN: JOLEEN ARORA bilaterally. EXTREMITIES: No edema in upper or lower extremities. NEUROLOGICAL: Grossly nonfocal. She is sleepy, but she is alert to voice and oriented to people, time, and place when asked questions. SKIN: No ulcer, no rash, no cyanosis. LABORATORY DATA: Currently, labs are pending. IMAGING STUDIES: None. ASSESSMENT AND PLAN: 1. Regarding her diabetic ketoacidosis, this is from medication noncompliance given that her insulin pump broke down 2 weeks ago and she did not replace. It is not quite clear to me if she was also compliant with her subcu regular regimen at home. Apparently not, because she is in full-blown diabetic ketoacidosis. I will continue diabetic ketoacidosis protocol and check a blood work, currently are pending including ABG to see if she will require more sodium bicarbonate drip. We will follow the diabetic ketoacidosis protocol per [email or web address]. IV fluids. She can have a diabetic diet. IV Zofran p.r.n. for nausea, vomiting. The patient does not look septic. Currently, I will not do any septic workup given the patient has no complaints to suggest any infection. Further plan will depend on clinical course. 2. Regarding her type 1 diabetes: See diabetic ketoacidosis for all the details. In addition, I will consult a nurse informatics educator to go over her insulin pump and education about medication compliance. In addition, I will check hemoglobin A1c as well. 3. Regarding her hypothyroidism: We will check a TSH and continue home dose of levothyroxine and see if she will require higher dosage depending on the TSH. Home medication currently is being reconciled. Therefore, once the medication list is ready, we will continue the home dose of levothyroxine for now. 4. Regarding her depression: Continue home medication. Currently, the medication list is being reconciled. The patient is not suicidal at the moment. She is a full code. 5. Deep vein thrombosis prophylaxis: She is young, she can ambulate, but she is very sleepy right now. I will give her compression devices and also give her Lovenox subcu. When she can ambulate, I will discontinue the Lovenox and let her ambulate. Time spent in care on the day of admission 35 minutes, where 10 minutes was spent on chart review, and the remainder of the time was spent in interview, physical examination, and also on counseling. The counseling includes going over the plan of care with the patient and addressing all the questions and PATIENT'S NAME: JUNIOR HOLLIS [facility] AGE: 26 Y [address] ROOM: [place] [address] LOCATION: [facility] ADMIT DATE: 10/09/2016 History & Physical DISCHARGE DATE: FAMILY PHYSICIAN: PHYSICIAN, UNKNOWN ATTENDING PHYSICIAN: JOLEEN ARORA concerns that the patient had, and I also went over the plan of care in detail with the patient and the nurse. I answered all her questions to her satisfaction. Further plan will depend on clinical course. MD SCOTTIE WHELAN/jeff /[id number] D: [id number] T: [id number] HISTORY & PHYSICAL
[~2016-10-09 05:11] MED LIST changes: +ABILIFY30 MG PO; +BENADRYL50 MG PO; +HUMALOG100 UNIT/1 SUB-Q; +INVOKANA300 MG PO; +LEVEMIR100 UNIT/1 SUB-Q; +THERA-VITE W/ B1 TAB PO
[2016-10-09 08:08] LABS: BICARBONATE 4.7 mmol/L (18.0-23.0); LACTATE 0.6 mEq/L (0.50-1.60); PO2 111 mmHg (80-90)
[2016-10-09 08:14] LABS: PCO2 14 mmHg (35-45)
[2016-10-09 08:20] LABS: BASOPHIL % 0.2 %; HEMATOCRIT 36.9 % (33.0-46.0); HEMOGLOBIN 13.1 g/dL (11.0-15.0); IMMATURE GRANULOCYTE # 0.2 K/uL (0.0-0.3); IMMATURE GRANULOCYTE % 1.1 %; LYMPHOCYTE # 1.7 K/uL (0.8-4.0); LYMPHOCYTE % 11.5 %; MCH 33.8 pg (27.0-34.0); MCHC 35.5 gm/dL (32.0-36.5); MCV 95.1 fl (83.0-98.0); MONOCYTE % 6.9 %; MPV 8.8 fl (9.4-12.4); NEUTROPHIL # (ANC) 12.1 K/uL (1.8-7.8); NEUTROPHIL % 80.3 %; NRBC % 0 /100WBC (0-0.00); PLATELET COUNT 255 K/uL (150-450); RBC 3.88 M/uL (3.50-5.00); RDW-CV 13.2 % (11.9-14.6)
[2016-10-09 08:48] LABS: ALK PHOS 94 IU/L (33-138); ALT 16 IU/L (12-78); AST 13 IU/L (10-40); BLOOD UREA NITROGEN 7 mg/dL (6-24); CHLORIDE 112 mMol/L (96-110); CREATININE 0.8 mg/dL (0.5-1.1); MAGNESIUM 1.8 mg/dL (1.8-2.6); POTASSIUM 3.8 mMol/L (3.7-5.1); SODIUM 138 mMol/L (135-145); TOTAL BILIRUBIN 0.5 mg/dL (0.0-1.5); TOTAL PROTEIN 6.1 g/dL (6.0-8.4)
[2016-10-09 08:49] LABS: ANION GAP 20.8 (10.0-19.0); CALCIUM 7.1 mg/dL (8.5-10.5); CO2 9 mMol/L (22-32); PHOSPHORUS 1.3 mg/dL (2.5-4.9)
[2016-10-09] MEDS ORDERED: LASIX40 MG PO (09:31)
[2016-10-09] MEDS ORDERED: INVOKANA300 MG PO (09:31)
[2016-10-09] MEDS ORDERED: GLUCOPHAGE1000 MG PO (09:32)
[2016-10-09] MEDS ORDERED: LANTUS (IN100 UNIT/M SUB-Q (09:39)
[2016-10-09 10:13] LABS: BILIRUBIN URINE NEGATIVE (NEGATIVE); BLOOD URINE 10 /UL (NEGATIVE); COLOR URINE STRAW (YELLOW); GLUCOSE URINE 250 mg/dL (NEGATIVE); KETONE URINE 150 mg/dL (NEGATIVE); LEUKOCYTES URINE NEGATIVE /UL (NEGATIVE); NITRITE URINE NEGATIVE (NEGATIVE); PROTEIN URINE 15 mg/dL (NEGATIVE); SPEC GRAVITY URINE 1.015 (1.003-1.035); TURBIDITY URINE CLEAR (CLEAR); UROBILINOGEN URINE NORMAL (NORMAL)
[2016-10-09 10:20] LABS: BACTERIA URINE RARE (NEGATIVE); EPITHELIAL URINE 0-2 #/HPF (NEGATIVE); RBC URINE RARE #/HPF (NEGATIVE); WBC URINE RARE #/HPF (NEGATIVE)
[2016-10-09 10:21] LABS: MUCUS URINE 1+ (NEGATIVE); YEAST URINE RARE (NEGATIVE)
--- NOTE | 2016-10-09 10:30 | NUR ---
Diabetes consult: Patient is well known to me from previous admission and used to be a patient of Nancie'juan in the [facility]. Last admission for DKA was in April 2016, at which time her accuchek insulin pump failed. At the time of dismissal the patient was provided with an emergency plan and written insulin doseages to inject if her pump failed again. She was also scheduled an appointment with Dr. Higginbotham, tile and mottle supervisor in [place]. Upon arrival in the room, the patient is drowsy, having a difficult time staying awake to talk. She is oriented and reports she has been doing subcutaneous injections due to an insulin pump failure. (Accucheck spirit pump which is no longer sold in the [place] Her mom is at bedside, and reports Amberly is scheduled to see Dr. Higginbotham, on October 14 to be trained on her new medtronic insulin pump. This information was passed on to Dr. Dasilva. Currently, the patient is on the insulin gtt. Once the anion gap is closed and dka is resolved, the patient may require Levemir 37 units (last basal setting at 1.55 units/hr on pump). In addition, she will need a Novolog insulin to carb ratio of 1 unit for every 15 grams (pump set at 1 unit for every 13 grams) and a moderate correction scale. If the patient begins eating while on the insulin gtt, would recommend giving Novolog 1 unit for every 15 grams SUBCUTANEOUS to account for carb consumption. Will continue to follow and assess education and additional needs prior to discharge.
[2016-10-09 16:29] LABS: ALBUMIN 2.6 gm/dL (3.5-5.0); BLOOD UREA NITROGEN 4 mg/dL (6-24); CREATININE 0.7 mg/dL (0.5-1.1); MAGNESIUM 2.5 mg/dL (1.8-2.6); POTASSIUM 3.1 mMol/L (3.7-5.1); SODIUM 143 mMol/L (135-145)
[2016-10-09 16:36] LABS: ANION GAP 13.1 (10.0-19.0); CALCIUM 7.3 mg/dL (8.5-10.5); CHLORIDE 116 mMol/L (96-110); CO2 17 mMol/L (22-32); PHOSPHORUS 1.5 mg/dL (2.5-4.9)
--- NOTE | 2016-10-09 16:55 | NUR ---
Patient A/Ox3. More awake throughout shift. No c/o n/t. C/o bilat flank pain relieved by medication and positioning. ST with HR 100-120s, SBP 110-130s. Afebrile. Continues on RA with o2 sats upeer 90s-100%. Continues on insulin gtt. Acidosis correcting throughout shift. Continuing to correct electrolytes. Follow up: continue to treat acidosis.
[2016-10-10 03:10] LABS: BASOPHIL % 0.2 %; EOSINOPHIL # 0.1 K/uL (0.0-0.5); EOSINOPHIL % 1.7 %; HEMATOCRIT 31.7 % (33.0-46.0); HEMOGLOBIN 11.8 g/dL (11.0-15.0); IMMATURE GRANULOCYTE % 0.3 %; LYMPHOCYTE # 1.8 K/uL (0.8-4.0); LYMPHOCYTE % 29.9 %; MCHC 37.2 gm/dL (32.0-36.5); MCV 91.4 fl (83.0-98.0); MONOCYTE # 0.5 K/uL (0.0-1.0); MONOCYTE % 8.3 %; MPV 8.7 fl (9.4-12.4); NEUTROPHIL # (ANC) 3.6 K/uL (1.8-7.8); NEUTROPHIL % 59.6 %; NRBC % 0 /100WBC (0-0.00); RBC 3.47 M/uL (3.50-5.00); RDW-CV 12.9 % (11.9-14.6)
[2016-10-10 03:22] LABS: PLATELET COUNT 194 K/uL (150-450)
[2016-10-10 03:35] LABS: ALBUMIN 2.5 gm/dL (3.5-5.0); ANION GAP 12.3 (10.0-19.0); BLOOD UREA NITROGEN 1 mg/dL (6-24); CALCIUM 7.8 mg/dL (8.5-10.5); CHLORIDE 117 mMol/L (96-110); CO2 20 mMol/L (22-32); CREATININE 0.6 mg/dL (0.5-1.1); MAGNESIUM 2.1 mg/dL (1.8-2.6); PHOSPHORUS 1.7 mg/dL (2.5-4.9); POTASSIUM 3.3 mMol/L (3.7-5.1); SODIUM 146 mMol/L (135-145)
--- NOTE | 2016-10-10 04:58 | NUR ---
pt a/o x4. vss on ra, afebrile. was on insulin gtt all noc. changed at 0430 to aggressive ssi with levimir bid. q4 ssi with carb count at meals. denies pain. zofran given x1 for indegestion. relief noted. voids well. fluids changed to ns at 100 x1L. sba. 40kcl po x1 given. plan: bmp at 0900 to recheck k and other levels
[2016-10-10 09:49] LABS: BLOOD UREA NITROGEN 1 mg/dL (6-24); CALCIUM 7.5 mg/dL (8.5-10.5); CHLORIDE 113 mMol/L (96-110); CO2 23 mMol/L (22-32); CREATININE 0.6 mg/dL (0.5-1.1); POTASSIUM 3.3 mMol/L (3.7-5.1)
[2016-10-10 09:51] LABS: ANION GAP 13.3 (10.0-19.0); SODIUM 146 mMol/L (135-145)
--- NOTE | 2016-10-10 10:07 | NUR ---
Diabetes Consult: Patient is alert and oriented this morning. Reports that she has been under increased stress. She is recently , raising her 9 year old son and has placed her house up for sale. She states that she has not omitted a dose of insulin and has plenty of supplies at home. She does carb count and has a smart meter that she uses at home to dose insulin to carb and correction for her. She states her basal insulin is up to 45 units every day. She has done well with pump therapy in the past with her A1C 's in the 7's. Unfortunately, her accuchek pump has failed twice and she current has an A1C of 8.4%. She is seeing an educator at Dr. Higginbotham's office in [place] on Friday to receive instruction on how to use her new medtronic pump. The patient is well educated regarding her diabetes and has no further questions. The patient was taken off the insulin gtt this morning and given 10 units of Levemir. Will continue to trend blood sugars. I suspect she will need an additional dose of Levemir to control blood sugars.
--- NOTE | 2016-10-10 10:54 | NUR ---
1015 Introduced self and CM role to Amberly. She tells me that she lives at home in [place] with her 9 year old son and she plans on returning there as soon as she is able to do so. States that her ex- or other family will come and pick her up when she is dismissed. Amberly is seen by Beth Leavitt, Nurse Practitioner on a regular basis. She also sees Selam Pruitt for her diabetic needs. Amberly says that she does her own medications at home and has no issues with paying for them or obtaining them. She denies any other questions, needs or concerns at this time. Asked if Diabetic Ed. had been in to see her since she has been here with us and if they had addressed all of her questions/concerns. She tells me that Monik with Diabetic Ed has been in to do teachings with her and answer her questions. Denies any need for DME or HHC upon dismissal. CM to continue to follow and assist. Plan home upon dismissal. Left my name on her whiteboard incase there would be any more questions for me before she is dismissed.
--- NOTE | 2016-10-10 12:00 | NUR ---
A - PT SCREENED D/T MST ADMIT FOR DKA. INSULIN PUMP WAS NOT WORKING FOR THE PAST 2 WEEKS PER H&P. HT: 157.48 CM, WT: 184#, BMI: 33.7, IBW: 50 KG, %IBW: 167% LABS: ALB 2.5, PO4 1.7, A1C 8.4% MEDS: LEVEMIR, AGG SSI, LEXAPRO, REPLACING ELECTROLYTES. DIET: CONSISTENT CARBS. HAD SOME COTTAGE CHEESE AND OMELETTE THIS AM. PT REPORTED UBW OF 195# VS CBW OF 184#, COMBINATION OF INTENTIONAL AND UNINTENTIONAL WT LOSS. PER RECORD, ABOUT 4% WT LOSS IN 5 MONTHS, NOT SIGNIFICANT, DEFERRED NFPE. SMALL EATER PER PT. OFFERED ORAL SUPPLEMENT, DECLINED, OKAY W/ SNACK. EST NEEDS: [id number] KCAL (25-30 KCAL/KG IBW), 50-60 GRAMS PROTEIN (1-1.2 GRAMS/KG IBW), FLUID NEEDS: 1ML/KCAL D - INADEQUATE ORAL INTAKE AT TIMES RELATED TO ALTERATION IN APPETITE EVIDENCED BY 4% WT LOSS IN 5 MONTHS AND PT REPORT. I - PT AGREED TO TRY HIGH PROTEIN SNACK BID. M/E - GOAL: PT WILL BE ABLE TO TOLERATE >50% OF MEALS AND AT LEAST ONE SNACK PER DAY IN 4-6 DAYS.
--- NOTE | 2016-10-10 15:57 | NUR ---
Significant Event: another dose K po given today, next check at [address] Hudson to increase tonight. IVF s.locked. Pt has had heartburn today, tums given and helped. Pt self up to bathroom. BG more controlled, another change to sliding scale. Follow up:
[2016-10-10 17:26] LABS: CALCIUM 8.1 mg/dL (8.5-10.5); CHLORIDE 108 mMol/L (96-110); CO2 26 mMol/L (22-32); CREATININE 0.5 mg/dL (0.5-1.1); SODIUM 141 mMol/L (135-145)
[2016-10-10 17:27] LABS: BLOOD UREA NITROGEN 2 mg/dL (6-24)
--- NOTE | 2016-10-11 03:21 | NUR ---
pt a/o x4. vss on ra, afebrile. up adlib on portable tele box. FSBS at hs [phone]- per woodruffs orders no SSI at hs only janaimir. Was 289 this am. denies pain. denies need for dm edu-is working with dm ed before d/c. no voiced concerns this shift. Plan: d/c home?
[2016-10-11 05:52] LABS: BASOPHIL % 0.9 %; EOSINOPHIL # 0.2 K/uL (0.0-0.5); EOSINOPHIL % 3.9 %; HEMATOCRIT 33.8 % (33.0-46.0); HEMOGLOBIN 12.2 g/dL (11.0-15.0); IMMATURE GRANULOCYTE % 0.5 %; LYMPHOCYTE # 1.9 K/uL (0.8-4.0); LYMPHOCYTE % 42.8 %; MCH 33.3 pg (27.0-34.0); MCHC 36.1 gm/dL (32.0-36.5); MCV 92.3 fl (83.0-98.0); MONOCYTE # 0.4 K/uL (0.0-1.0); MONOCYTE % 8.1 %; MPV 9.3 fl (9.4-12.4); NEUTROPHIL # (ANC) 1.9 K/uL (1.8-7.8); NEUTROPHIL % 43.8 %; NRBC % 0 /100WBC (0-0.00); PLATELET COUNT 177 K/uL (150-450); RBC 3.66 M/uL (3.50-5.00); RDW-CV 12.4 % (11.9-14.6); WBC 4.3 K/uL (4.0-11.0)
[2016-10-11 06:01] LABS: ALBUMIN 2.8 gm/dL (3.5-5.0); ANION GAP 12.1 (10.0-19.0); CALCIUM 8.3 mg/dL (8.5-10.5); CHLORIDE 105 mMol/L (96-110); CO2 28 mMol/L (22-32); CREATININE 0.4 mg/dL (0.5-1.1); MAGNESIUM 2.1 mg/dL (1.8-2.6); PHOSPHORUS 3.2 mg/dL (2.5-4.9); POTASSIUM 3.1 mMol/L (3.7-5.1); SODIUM 142 mMol/L (135-145)
[2016-10-11 06:03] LABS: BLOOD UREA NITROGEN 6 mg/dL (6-24)
[2016-10-11] MEDS ORDERED: TYLENOL325 MG PO (13:55)
[2016-10-11] MEDS ORDERED: LEVEMIR100 UNIT/1 SUB-Q (14:00)
[2016-10-11] MEDS ORDERED: NOVOLOG100 UNIT/M SUB-Q (14:04)
--- NOTE | 2016-10-11 14:56 | NUR ---
Discharge Note: VSS. Patient discharged to home. Verbized understanding with new medication teaching. Patient stated she had a meter, insulin, and everything she needs at home to adequetley check her blood sugar levels. She will follow up with primary on and have her insulin pump started.
== END 2016-10-11 14:50 | disposition disaster alternative care site (69) | DRG 639 ==
LOC: GICU 06:42 → GPCU 06:42 → GICU 16:35 → GPCU 19:11
PROVIDERS: Internal Medicine; Physician Assistant; ADMIT Internal Medicine
DX: E10.10 Type 1 diabetes mellitus with ketoacidosis without coma (principal); F32.9 Major depressive disorder, single episode, unspecified; E03.9 Hypothyroidism, unspecified; E87.6 Hypokalemia; Z96.41 Presence of insulin pump (external) (internal)
CPT/HCPCS: C9113; J1650; J2405; J3475; J3480; J7030; J7040; J7050; J7121